=== PATIENT | male | born 1960 | race African-American/Black ===

== ENCOUNTER 2019-12-09 08:08 | Emergency (ER) | payer OTHER ==
[2019-12-09] MEDS ORDERED: KETOROLAC TROMETHAMINE 30MG/ML ONE (08:36)
[2019-12-09] MEDS ORDERED: CYCLOBENZAPRINE HCL 10 MG TABLET ONE (08:37)
== END 2019-12-09 10:41 | disposition home or self-care (01) ==
LOC: EDH 08:08
DX: S40.012A Contusion of left shoulder, initial encounter (principal); W50.0XXA Accidental hit or strike by another person, initial encounter; Y93.89 Activity, other specified; Y92.098 Other place in other non-institutional residence as the place of occurrence of the external cause; Y99.8 Other external cause status
CPT/HCPCS: 73030; 96372; 99283; J1885